=== PATIENT | male | born 1975 | race Caucasian/White ===

== ENCOUNTER 2017-11-11 12:54 | Inpatient (IN) | payer OTHER ==
[~2017-11-11] VITALS: Ht 180.3 cm; Wt 87.5 kg
[2017-11-11] MEDS ORDERED: THIAMINE 100MG TABLET PO ONE (13:30)
[2017-11-11] MEDS ORDERED: ONDANSETRON ODT 4 MG PO ONE (13:30)
[2017-11-11] MEDS ORDERED: LORazepam 1MG TABLET PO ONE (13:30)
[2017-11-11] MEDS ORDERED: LORazepam 2 MG/ML, 1ML ONE ×3 (13:40→17:30)
[2017-11-11] MEDS: LORazepam 2 MG/ML, 1ML IVPush PRN ×6 (13:40→23:34)
[2017-11-11] MEDS ORDERED: SODIUM CHLORIDE 0.9% 1,000 ML IV ONE ×2 (13:44→16:24)
[2017-11-11] MEDS ORDERED: ONDANSETRON 2MG/ML, 2ML IVPush ONE (14:00)
[2017-11-11] MEDS ORDERED: SODIUM CHLORIDE FLUSH 10ML SYR IVF ONE (14:00)
[2017-11-11] MEDS ORDERED: THIAMINE 100 MG in SODIUM CHLORIDE 0.9% 50 ML IVPB ONE (14:00)
[2017-11-11] MEDS ORDERED: SODIUM CHLORIDE 0.9% 1,000ML IVBOLUS ONE (14:00)
[2017-11-11 14:08] LABS: BASOPHILS # (AUTO) 0.02 x10^3/uL (0-0.1); BASOPHILS % (AUTO) 1 % (0-1); EOSINOPHILS # (AUTO) 0.06 x10^3/uL (0-0.4); EOSINOPHILS % (AUTO) 2 % (1-7); LYMPHOCYTES # (AUTO) 0.58 x10^3/uL (1-3.4); LYMPHOCYTES % (AUTO) 19 % (22-44); MD NO; MEAN CORPUSCULAR HGB CONC 34.3 g/dL (33.2-36.2); MEAN CORPUSCULAR VOLUME 93.5 fL (81-97); MEAN PLATELET VOLUME 7.1 fL (7.4-10.4); MONOCYTES # (AUTO) 0.49 x10^3/uL (0.2-0.8); MONOCYTES % (AUTO) 16 % (2-9); NEUTROPHILS # (AUTO) 1.84 x10^3/uL (1.8-6.8); NEUTROPHILS % (AUTO) 61 % (42-75); PLATELET COUNT 184 x10^3/uL (130-400); RED BLOOD COUNT 4.35 x10^6/uL (4.38-5.82); RED CELL DISTRIBUTION WIDTH 14.3 % (9.4-14.8)
[2017-11-11 14:17] LABS: INTERNATIONAL NORMALIZED RATIO 1.09 (0.93-1.1); PROTHROMBIN TIME 11.3 Seconds (9.6-11.5)
[2017-11-11 14:20] LABS: ALANINE AMINOTRANSFERASE 96 U/L (12-78); ALBUMIN 3.9 g/dL (3.4-5.0); ANION GAP 16 mmol/L (5-15); CHLORIDE 99 mmol/L (98-107); CREATININE 0.95 mg/dL (0.7-1.3)
[2017-11-11 14:23] LABS: ALKALINE PHOSPHATASE 98 U/L (45-117); BILIRUBIN,TOTAL 1.8 mg/dL (0.2-1.0); TOTAL PROTEIN 8.4 g/dL (6.4-8.2)
[2017-11-11] MEDS ORDERED: morphine SULFATE 10 MG/ML, 1ML IVPush PRN (16:30)
[2017-11-11] MEDS ORDERED: SODIUM CHLORIDE FLUSH 10ML SYR IVF PRN (16:30)
[2017-11-11] MEDS ORDERED: HALOPERIDOL 5 MG/ML IM PRN (16:30)
[2017-11-11] MEDS ORDERED: ONDANSETRON 2MG/ML, 2ML IVPush PRN (16:30)
[2017-11-11] MEDS ORDERED: OXYcodone IR 5MG TABLET PO PRN (16:30)
[2017-11-11] MEDS ORDERED: LORazepam 2 MG/ML, 1ML IVPush PRN (16:30)
[2017-11-11 18:59] VITALS: BP 156/108
[2017-11-11 19:53] VITALS: BP 174/103
[2017-11-11] MEDS: PANTOPRAZOLE 40 MG IV IVPush SCH (20:01)
[2017-11-11] MEDS: METOPROLOL TARTRATE 50 MG TABLET PO SCH (20:01)
[2017-11-11] MEDS: SODIUM CHLORIDE 0.9% 1,000 ML IV SCH (20:01)
[2017-11-11 21:42] VITALS: BP 137/111
[2017-11-11] MEDS: hydrALAzine 20 MG/ML, 1ML IVPush PRN (22:16)
[2017-11-11 22:19] VITALS: BP 166/108
[2017-11-12] VITALS (12 sets, daily range): BP systolic 137–166; BP diastolic 87–107
[2017-11-12] MEDS: LORazepam 2 MG/ML, 1ML IVPush PRN ×6 (03:06→20:50)
[2017-11-12] MEDS: SODIUM CHLORIDE 0.9% 1,000 ML IV SCH ×3 (03:13→20:52)
[2017-11-12 05:11] LABS: ALANINE AMINOTRANSFERASE 77 U/L (12-78); ALBUMIN 3.7 g/dL (3.4-5.0); ANION GAP 14 mmol/L (5-15); CALCIUM 8.8 mg/dL (8.5-10.1); CHLORIDE 99 mmol/L (98-107)
[2017-11-12 05:15] LABS: ALKALINE PHOSPHATASE 93 U/L (45-117); BILIRUBIN,TOTAL 2.3 mg/dL (0.2-1.0); CREATININE 0.64 mg/dL (0.7-1.3); TOTAL PROTEIN 7.8 g/dL (6.4-8.2)
[2017-11-12 06:15] LABS: AMPHETAMINE SCREEN, URINE Negative (Negative); BARBITURATE SCREEN, URINE Negative (Negative); BENZODIAZEPINE SCREEN, URINE Negative (Negative); CANNABINOID SCREEN, URINE Negative (Negative); COCAINE SCREEN, URINE Negative (Negative); METHADONE SCREEN, URINE Negative (Negative); OPIATE SCREEN, URINE Negative (Negative)
[2017-11-12] MEDS: METOPROLOL TARTRATE 50 MG TABLET PO SCH ×2 (08:26→20:57)
[2017-11-12] MEDS: PANTOPRAZOLE 40 MG IV IVPush SCH ×2 (08:26→20:57)
[2017-11-12] MEDS ORDERED: SODIUM CHLORIDE 0.9% IV ONE (13:30)
[2017-11-12] MEDS ORDERED: POTASSIUM PHOSPHATE IV ONE (13:30)
[2017-11-12] MEDS ORDERED: MAGNESIUM SULFATE 6 GM in SODIUM CHLORIDE 0.9% 250 ML IV ONE (13:30)
[2017-11-12] MEDS ORDERED: MAGNESIUM SULFATE IV ONE (13:30)
[2017-11-12] MEDS: POTASSIUM CHLORIDE 20 MEQ TAB.ER.PRT PO SCH ×2 (14:28→17:22)
[2017-11-12] MEDS ORDERED: POTASSIUM PHOSPHATE 44 MEQ in SODIUM CHLORIDE 0.9% 500 ML IV ONE (20:00)
[2017-11-13] MEDS: LORazepam 2 MG/ML, 1ML IVPush PRN ×7 (00:59→21:58)
[2017-11-13 01:03] VITALS: BP 130/89
[2017-11-13] MEDS: SODIUM CHLORIDE 0.9% 1,000 ML IV SCH ×2 (04:46→20:30)
[2017-11-13 05:36] LABS: ALBUMIN 3.6 g/dL (3.4-5.0); ANION GAP 10 mmol/L (5-15); CALCIUM 8.5 mg/dL (8.5-10.1); CHLORIDE 104 mmol/L (98-107)
[2017-11-13 05:39] LABS: ALANINE AMINOTRANSFERASE 73 U/L (12-78); ALKALINE PHOSPHATASE 88 U/L (45-117); BILIRUBIN,TOTAL 2.7 mg/dL (0.2-1.0); CREATININE 0.69 mg/dL (0.7-1.3); TOTAL PROTEIN 7.7 g/dL (6.4-8.2)
[2017-11-13 06:40] VITALS: BP 159/97
[2017-11-13] MEDS ORDERED: POTASSIUM PHOSPHATE 44 MEQ in SODIUM CHLORIDE 0.9% 500 ML IV ONE (10:30)
[2017-11-13] MEDS: METOPROLOL TARTRATE 50 MG TABLET PO SCH ×2 (11:27→20:29)
[2017-11-13] MEDS: PANTOPRAZOLE 40 MG IV IVPush SCH ×2 (11:27→20:30)
[2017-11-13] MEDS: GABAPENTIN 100 MG CAPSULE PO SCH ×3 (11:27→20:29)
[2017-11-13] MEDS: cloniDINE 0.1MG PATCH TD SCH (11:28)
[2017-11-13 12:32] VITALS: BP 110/71
[2017-11-13 20:28] VITALS: BP 144/94
[2017-11-14 01:00] VITALS: BP 141/100
[2017-11-14] MEDS: LORazepam 2 MG/ML, 1ML IVPush PRN ×4 (02:59→20:36)
[2017-11-14] MEDS: SODIUM CHLORIDE 0.9% 1,000 ML IV SCH (04:52)
[2017-11-14 05:45] LABS: ANION GAP 11 mmol/L (5-15); CALCIUM 8.6 mg/dL (8.5-10.1); CHLORIDE 102 mmol/L (98-107)
[2017-11-14 05:47] LABS: CREATININE 0.72 mg/dL (0.7-1.3)
[2017-11-14 08:14] VITALS: BP 136/93
[2017-11-14] MEDS: PANTOPRAZOLE 40 MG IV IVPush SCH ×2 (08:18→20:33)
[2017-11-14] MEDS: METOPROLOL TARTRATE 50 MG TABLET PO SCH ×2 (08:18→20:34)
[2017-11-14] MEDS: GABAPENTIN 100 MG CAPSULE PO SCH ×3 (08:18→20:33)
[2017-11-14 12:54] VITALS: BP 139/92
[2017-11-14] MEDS ORDERED: MAGNESIUM SULFATE PMX 2GM/50ML 50 ML IV ONE (13:00)
[2017-11-14] MEDS: POTASSIUM PHOSPHATE 44 MEQ in SODIUM CHLORIDE 0.9% 500 ML IV SCH ×2 (16:42→23:09)
[2017-11-14 20:07] VITALS: BP 142/91
[2017-11-15 01:28] VITALS: BP 145/92
[2017-11-15] MEDS: LORazepam 2 MG/ML, 1ML IVPush PRN (03:25)
[2017-11-15 05:10] LABS: ANION GAP 10 mmol/L (5-15); CALCIUM 8.9 mg/dL (8.5-10.1); CHLORIDE 98 mmol/L (98-107); CREATININE 0.72 mg/dL (0.7-1.3)
[2017-11-15 07:45] VITALS: BP 170/114
[2017-11-15] MEDS: GABAPENTIN 100 MG CAPSULE PO SCH (07:50)
[2017-11-15] MEDS: METOPROLOL TARTRATE 50 MG TABLET PO SCH (07:51)
[2017-11-15] MEDS: PANTOPRAZOLE 40 MG IV IVPush SCH (07:52)
[2017-11-15] MEDS: hydrALAzine 20 MG/ML, 1ML IVPush PRN (07:56)
[2017-11-15] MEDS ORDERED: METO50TA82 PO (09:20)
[2017-11-15] MEDS ORDERED: GABA-826 PO (09:20)
[2017-11-15 09:23] VITALS: BP 150/100
[2017-11-15] MEDS ORDERED: MULT-412 PO (09:23)
[2017-11-15] MEDS ORDERED: FOLI-17 PO (09:23)
[2017-11-15] MEDS ORDERED: MAGN400T26 PO (09:23)
[2017-11-15] MEDS ORDERED: THIA100T10 PO (09:23)
[2017-11-15] MEDS: cloniDINE 0.1MG PATCH TD SCH (09:25)
[2017-11-15] MEDS ORDERED: NICO-487 TD (09:35)
== END 2017-11-15 11:53 | disposition home or self-care (01) | DRG 897 ==
LOC: ED 16:14 → SUATTDRO 16:16 → EDIP 16:24 → 4EST 18:12
PROVIDERS: ADMIT Internal Medicine; ATTEND Internal Medicine
DX: F10.231 Alcohol dependence with withdrawal delirium (principal); E83.39 Other disorders of phosphorus metabolism; E87.2 Acidosis; K70.10 Alcoholic hepatitis without ascites; R44.3 Hallucinations, unspecified; R45.4 Irritability and anger; F17.200 Nicotine dependence, unspecified, uncomplicated; I10 Essential (primary) hypertension; Z83.3 Family history of diabetes mellitus
CPT/HCPCS: 36415; 71045; 80048; 80053; 80307; 83605; 83690; 83735; 84100; 85025; 85610; 85730; 93005; 96365; 96366; 96375; 96376; J3411; J3475; C9113; G0479; J0360; J1630; J2060; J7030; J7040